=== PATIENT | female | born 1985 | race Caucasian/White ===

== ENCOUNTER 2021-08-02 17:38 | Outpatient (REF) | payer MEDICAID, SELFPAY ==
[2021-08-02 16:41] LABS: *AMPHETAMINES SCREEN URINE Negative (Negative); *BARBITURATES SCREEN URINE Negative (Negative); *BENZODIAZEPINES SCREEN URINE Negative (Negative); Cannabinoids THC Negative (Negative); Cocaine Screen,Urine Negative (Negative); METHADONE URINE SCREEN Negative (Negative); OPIATES URINE SCREEN Negative (Negative)
[2021-08-02 16:44] LABS: Tricyclic Antidepressants Negative (Negative)
[2021-08-08 12:52] LABS: Buprenorphine Negative ng/mL (Cutoff: 5.0); Norbuprenorphine Negative ng/mL (Cutoff: 2.5)
== END 2021-08-02 17:39 | disposition home or self-care (01) ==
LOC: LBN 17:38
PROVIDERS: PCP Family Medicine; Visit Provider Advanced Practice Midwife
DX: O09.512 Supervision of elderly primigravida, second trimester (principal); Z3A.22 22 weeks gestation of pregnancy
CPT/HCPCS: 80307

== ENCOUNTER 2021-09-13 04:00 | Outpatient (CLI) | payer MEDICAID, SELFPAY ==
[2021-09-13 16:11] LABS: HCT 31.7 % (36.0-46.0); HGB 10.4 g/dL (11.2-15.7); MCH 29.8 pg (27.0-33.0); MCHC 32.8 % (32.0-36.0); MCV 91 fL (80-95); MPV 9.6 fL (8.0-11.0); Platelet Count 164 10^3/uL (130-400); RBC 3.49 10^6/uL (3.93-5.22); RDW 13.4 % (11.7-14.6); RDW-SD 43.8 fL; WBC 7.64 10^3/uL (4.4-10.8)
[2021-09-13 16:33] LABS: Glucose,1 Hr (Glucola) 113 mg/dL (80-140)
== END 2021-09-13 04:01 | disposition home or self-care (01) ==
LOC: LBO 04:00
PROVIDERS: PCP Family Medicine; Visit Provider Advanced Practice Midwife
DX: Z34.93 Encounter for supervision of normal pregnancy, unspecified, third trimester (principal); Z3A.28 28 weeks gestation of pregnancy
CPT/HCPCS: 36415; 82950; 85027

== ENCOUNTER 2021-11-08 15:22 | Outpatient (REF) | payer MEDICAID, SELFPAY ==
[2021-11-08 17:11] LABS: *AMPHETAMINES SCREEN URINE Negative (Negative); *BARBITURATES SCREEN URINE Negative (Negative); *BENZODIAZEPINES SCREEN URINE Negative (Negative); Cannabinoids THC Negative (Negative); Cocaine Screen,Urine Negative (Negative); METHADONE URINE SCREEN Negative (Negative); OPIATES URINE SCREEN Negative (Negative); Tricyclic Antidepressants Negative (Negative)
[2021-11-14 09:07] LABS: Buprenorphine Negative ng/mL (Cutoff: 5.0)
== END 2021-11-08 15:23 | disposition home or self-care (01) ==
LOC: LBN 15:22
PROVIDERS: PCP Family Medicine; Visit Provider Advanced Practice Midwife
DX: Z34.93 Encounter for supervision of normal pregnancy, unspecified, third trimester (principal); Z36.85 Encounter for antenatal screening for Streptococcus B; Z3A.36 36 weeks gestation of pregnancy
CPT/HCPCS: 80307; 87081

== ENCOUNTER 2021-11-14 13:23 | Outpatient (CLI) | payer MEDICAID, SELFPAY ==
[2021-11-14 14:30] VITALS: BP 106/65; PULSE 77; TEMP 36.7
[2021-11-14 14:53] VITALS: BP 103/65; PULSE 77
--- NOTE | 2021-11-14 15:12 | W.OBNST ---
Date of service: 11/14/21 Time of Service: 15:12 NST Evaluation Reason for NST Reasons for Nonstress Test: DECREASED MOVEMENT Gestational Age Gestational Age in Weeks and Days: 37 Weeks and 0Days Test and Monitor Explained Test/Monitor Explained: Test Explained, Monitor Explained and Patient Verbalized Understanding Vital Signs Blood Pressure: 106/65 Pulse: 77 Temperature: 98.1 F NST Information Date on Monitor: 11/14/21 Time on Monitor: 14:31 Date off Monitor: 11/14/21 Time off Monitor: 14:53 Total Time on Monitor: 22 NST Interventions: PO Hydration NST Evaluation Patient States Movement: Present FHR Baseline: 150 Variability: Moderate 6-25 bpm Accelerations: 15x15 Decelerations: None NST Results: Reactive Note NST Note NST Reviewed and Verified by: Naomi Jeronimo
[2021-11-14 15:13] VITALS: BP 106/65; PULSE 77; TEMP 36.7
== END 2021-11-14 14:58 | disposition home or self-care (01) ==
LOC: BCD 13:25 → OBS 14:29
PROVIDERS: PCP Family Medicine; Visit Provider Advanced Practice Midwife
DX: O36.8130 Decreased fetal movements, third trimester, not applicable or unspecified (principal); Z3A.37 37 weeks gestation of pregnancy
CPT/HCPCS: 59025

== ENCOUNTER 2021-11-22 06:17 | Outpatient (CLI) | payer MEDICAID, SELFPAY ==
[2021-11-22 12:43] VITALS: BP 109/66; PULSE 73; TEMP 36.7
[2021-11-22 13:00] VITALS: BP 109/66; PULSE 73
--- NOTE | 2021-11-22 13:28 | W.OBNST ---
Date of service: 11/22/21 Time of Service: 13:28 NST Evaluation Reason for NST Reasons for Nonstress Test: OTHER, SEE COMMENT Reason for NST Other: two vessel cord Gestational Age Gestational Age in Weeks and Days: 38 Weeks and 1Days Test and Monitor Explained Test/Monitor Explained: Test Explained and Monitor Explained Vital Signs Blood Pressure: 109/66 Pulse: 73 Temperature: 98.1 F NST Information Date on Monitor: 11/22/21 Time on Monitor: 12:45 Date off Monitor: 11/22/21 Time off Monitor: 13:16 Total Time on Monitor: 31 NST Interventions: PO Hydration NST Evaluation Patient States Movement: Present FHR Baseline: 125 Variability: Moderate 6-25 bpm Accelerations: 15x15 Decelerations: None NST Results: Reactive Note NST Note Note: Reactive NST. History of 2 vessel cord and small fundal height. NST Reviewed and Verified by: Anny Rodriguez
[2021-11-22 13:29] VITALS: BP 109/66; PULSE 73; TEMP 36.7
== END 2021-11-22 13:18 | disposition home or self-care (01) ==
LOC: BCD 06:20 → OBS 12:42
PROVIDERS: PCP Family Medicine; Visit Provider Advanced Practice Midwife
DX: O36.5933 Maternal care for other known or suspected poor fetal growth, third trimester, fetus 3 (principal); O36.8930 Maternal care for other specified fetal problems, third trimester, not applicable or unspecified; Z3A.38 38 weeks gestation of pregnancy
CPT/HCPCS: 59025

== ENCOUNTER 2021-11-29 07:05 | Outpatient (CLI) | payer MEDICAID, SELFPAY ==
[2021-11-29 12:52] VITALS: BP 105/57; PULSE 68; TEMP 36.7
[2021-11-29 13:04] VITALS: BP 105/57; PULSE 68
--- NOTE | 2021-11-29 14:48 | W.OBNST ---
Date of service: 11/29/21 Time of Service: 14:49 NST Evaluation Reason for NST Reasons for Nonstress Test: OTHER, SEE COMMENT Reason for NST Other: single artery umbilical cord Gestational Age Gestational Age in Weeks and Days: 39 Weeks and 1Days Test and Monitor Explained Test/Monitor Explained: Test Explained and Monitor Explained Vital Signs Blood Pressure: 105/57 Pulse: 68 Temperature: 98.1 F Urine Results Urine Protein: Negative Urine Ketones: Negative Urine Glucose: Negative Urine Blood: Negative NST Information Date on Monitor: 11/29/21 Time on Monitor: 12:56 Date off Monitor: 11/29/21 Time off Monitor: 13:20 Total Time on Monitor: 24 NST Interventions: PO Hydration NST Evaluation Patient States Movement: Present FHR Baseline: 135 Variability: Moderate 6-25 bpm Accelerations: 15x15 Decelerations: None NST Results: Reactive Note Biophysical Profile Results of Biophysical Profile: 10/10 and ABDOUL Results of ABDOUL: 22.9 NST Note NST Reviewed and Verified by: Naomi Jeronimo
[2021-11-29 14:49] VITALS: BP 105/57; PULSE 68; TEMP 36.7
== END 2021-11-29 13:40 | disposition home or self-care (01) ==
LOC: BCD 07:09 → OBS 11:43
PROVIDERS: PCP Family Medicine; Visit Provider Advanced Practice Midwife
DX: O36.8930 Maternal care for other specified fetal problems, third trimester, not applicable or unspecified (principal); Z3A.39 39 weeks gestation of pregnancy
CPT/HCPCS: 59025

== ENCOUNTER 2021-12-06 07:32 | Outpatient (CLI) | payer MEDICAID, SELFPAY ==
[2021-12-06 13:27] VITALS: BP 107/68; PULSE 78
[2021-12-06 13:39] VITALS: BP 107/68; PULSE 78; TEMP 36.7
--- NOTE | 2021-12-06 14:08 | W.OBNST ---
Date of service: 12/06/21 Time of Service: 14:08 NST Evaluation Reason for NST Reasons for Nonstress Test: OTHER, SEE COMMENT Reason for NST Other: 2 vessel cord. Gestational Age Gestational Age in Weeks and Days: 40 Weeks and 1Days Test and Monitor Explained Test/Monitor Explained: Test Explained, Monitor Explained and Patient Verbalized Understanding Vital Signs Blood Pressure: 107/68 Pulse: 78 Temperature: 98.1 F Urine Results Urine Protein: Negative Urine Ketones: Negative Urine Glucose: Negative Urine Blood: Negative NST Information Date on Monitor: 12/06/21 Time on Monitor: 13:15 Date off Monitor: 12/06/21 Time off Monitor: 14:03 Total Time on Monitor: 48 NST Interventions: PO Hydration and Reposition Patient Contraction Frequency: Irregular mild contractions NST Evaluation Patient States Movement: Present FHR Baseline: 130 Variability: Moderate 6-25 bpm Accelerations: 15x15 Decelerations: None NST Results: Reactive Note NST Note Note: NST is reactive and reassuring. Will return 12/12 for NST and ABDOUL for 41 week gestation. Declines IOL. IDA NST Reviewed and Verified by: Anny Kapoor
[2021-12-06 14:09] VITALS: BP 107/68; PULSE 78; TEMP 36.7
== END 2021-12-06 14:07 | disposition home or self-care (01) ==
LOC: BCD 07:36 → OBS 13:20
PROVIDERS: PCP Family Medicine; Visit Provider Advanced Practice Midwife
DX: O36.8930 Maternal care for other specified fetal problems, third trimester, not applicable or unspecified (principal); Z3A.40 40 weeks gestation of pregnancy
CPT/HCPCS: 59025

== ENCOUNTER 2021-12-12 08:59 | Inpatient (IN) | payer MEDICAID, SELFPAY ==
[2021-12-12] VITALS (20 sets, daily range): BP systolic 101–122; BP diastolic 54–67; PULSE 69–96; RESP 16–20; TEMP 36.6–37.5; O2SAT 97–99
--- NOTE | 2021-12-12 09:03 | W.PM.OBHPL1 ---
Date of service: 12/12/21 Time of Service: 08:45 Assessment and Plan Assessment and plan (1) Normal labor: Status: Acute Assessment and plan: 1. Admit and do admission labs, CBC, type and screen, COVID screen 2. Support labor and expect NVD. IDA (2) Group B Streptococcus carrier, +RV culture, currently : Status: Acute Assessment and plan: 1. PCN prophylaxis will be started. IDA OB-HPI Labor/Delivery History of Present Illness Reason for Visit: Active labor at term Chief Complaint: Uterine Contractions; Suspected Rupture of Membranes , Associated Signs and Symptoms of Suspected ROM: reports yellow fluid leaking in moderate amounts this morning starting at 0630. Denies bloody discharge. . MAURICE Calculator Estimated Delivery Date Method Current WG Current Estimate 12/05/21 LMP (Certain) 41w 0d History of Present Expected Delivery Route/Plan - CNM FOB/ - Damian Pablo (first child) BG Bolanoslori Cooper Plans to take placenta home team might include Cherise (pt's aunt) GBS POSITIVE - Plan for PCN prophylaxis Specific Issues/Plan 1. AMA- Normal Panorama, SMA testing, CF neg 1a. [place] [facility] [place] 2 [place]- consult planned with [place] Coulter [place] [facility] [place] 28 weeks, [place] [facility] [place] has follow up [place] [facility] [place] as well & Recommend weekly NST's at 36 weeks 1c. [place] [facility] [place]: EFW in 36th percentile, ABDOUL 22.6, SUA again seen. 2. Hives in : developed early after the morning sickness started, zyrtec helps. 3rd trimester: resolved. 3. marijuana use - stopped after the first trimester. 4. Jean Claude and Shawnee Salgado are both vaccinated for covid. 5. Increased risk of preeclampsia - discussed ASA daily recommendation, Jean Claude is taking it but ran out and did not restart 6. anemia - taking liver capsules. 1 capsule per day. 7. GBS+ @ 36 wks: discussed plan for PCN prophylaxis during labor Assessment: History Reviewed & Current Informed Consent Informed Consent: Risk,Benefits,Alternatives Discussed (expectant management in labor and ROM plus reviewed. IDA) Review of Systems All systems reviewed & are unremarkable except as noted in HPI and below (leaking fluid prior to arrival) PFSH All Active Problems (Updated 12/12/21 @ 09:24 by Anny Kapoor CNM) Group B Streptococcus carrier, +RV culture, currently (Acute) Normal labor (Acute) Elderly primigravida (Acute) Single artery and vein of umbilical cord (Acute) [place] 32 weeks [place] [facility] [place] NST's at 36 weeks weekly Lichen simplex chronicus (Acute) Marijuana use (Acute) Eczema (Acute) (Acute) Medical History Family History Maternal Grandfather Heart disease Cancer Maternal Uncle Cancer blood Cancer Mother Cancer melanoma Paternal Grandfather Diabetes Sister Asthma Social History Smoking risk assessment performed?: No History History 5 Para 0 Hx # Term Pregnancies 0 Multiple births 0 Hx # Pregnancies 0 Ectopic pregnancies 0 AB induced 2 Hx Number of Living Children 0 AB spontaneous 2 Meds Allergies and Home Medications Allergies Allergy/AdvReac Type Severity Reaction Status Date / Time No Known Allergies Allergy Verified 12/12/21 09:10 Home Medications Medication Instructions Recorded Confirmed Type cetirizine 10 mg capsule (Zyrtec) 10 mg PO DAILY PRN allergy 07/03/21 12/12/21 Rx symptoms #1 cap vit 168-iron 27 mg-folic 1 cap PO DAILY #1 cap 07/03/21 12/12/21 Rx acid 800 mcg-omega3 235 mg capsule (One-A-Day -1) aspirin 81 mg chewable tablet 81 mg PO DAILY 08/30/21 12/12/21 History ferrous sulfate 325 mg (65 mg 325 mg PO DAILY 09/27/21 12/12/21 History iron) tablet mometasone 0.1 % topical cream 1 applic topical DAILY PRN 09/27/21 12/12/21 History Exam Physical Exam Vital signs: Pulse BP 69 121/67 12/12/21 08:34 12/12/21 08:34 Vital Signs Reviewed: Yes Constitutional Constitutional: no acute distress and average body habitus Detailed Labor and Delivery Exam Dilation: 5 Effacement (%): 90 station: -1 Cervix position: posterior Consistency: soft Brown Score: Cervical Points Exam 0 1 2 3 Dilation Closed 1-2cm 3-4 cm 5-6cm Effacement 0-30% 40-50% 60-70% 80% Consistency Firm Medium Soft Station -3 -2 -1,0 +1,+2 Position Posterior Mid Anterior BROWN Score(Cervical Ripeness Score): 10 Fetus A Heart Rate Baseline: 140 Monitor Accelerations: 10 X 10 Monitor Decelerations: Early Variability: Minimal (1-5 BPM) Est. Weight: 8 lb 6 oz Date of Membrane Rupture: 12/12/21 Time of Membrane Rupture: 06:20 HEENT Exam HEENT Exam: Normal Neck Exam Neck Exam: Normal (visual exam) Chest/Brest/Axilla Exam Chest Exam: Not Done Breast Exam Breast Exam: Not Done Respiratory Exam Respiratory Exam: Normal Cardiovascular Exam Cardiovascular Exam: Normal Abdominal Exam Abdominal Exam: Normal (gravid uterus, size equals dates) Rectal Exam Rectal Exam: Not Done Exam Exam: Normal (no fluid loss noted with exam.) Extremities Exam Extremities Exam: Normal Back/Spine/Pelvis Exam Back Exam: Normal Pelvis Adequate: Yes Skin Exam Skin Exam: Normal Neurological Exam Neurological Exam: Normal Psychiatric Exam Psychiatric Exam: Normal Results Results Group Beta Strep: Positive Blood Type: A+ Rubella Status: Immune Varicella Immunity: Not Tested Lab Results: Panorama test LR male, Hep B-, Hep C-, Syphillis neg, GC CT neg, 1 hour glucose 113 Risk Assessment Risk for Shoulder Dystocia Historical/Initial OB: NEGATIVE FOR: Pelvic Abnormality, Pre- BMI>30, Previous Shoulder Dystocia or Previous Macrosomia 40 Weeks: POSTIVE FOR: Post Dates; NEGATIVE FOR: EFW> 4500 gms or Maternal Weight Gain >40lb Delivery Plan @ 36wks: NVD Delivery Plan @ 40 wks: expect NVD, 41 week gestation but AGA fetus by tennille Risk for Pre-Eclampsia Date Initiated/Initials: 08/02/21 Yes, if one or more: NEGATIVE FOR: Hx Pre-E/Gest HTN, Chronic HTN, Multiple Gestation, Pre-gestational DM, Renal Disease, Systemic Lupus or APA Syndrome Yes, if 2 or more: POSITIVE FOR: Nulliparity and Age>= 35 yrs; NEGATIVE FOR: >10yr btwn pregnancies, BMI>30, ethinicty, Mother/Sister w/ Pre-E or Previous IUGR Risk for Post- Hemorrhage Initial: NEGATIVE FOR: Multiple Gestation, Previous PPH, Known Clotting Deficiency, Grand Multiparity or Anticoagulation At Risk?: No Counseled re: Active Management: Yes Date/Initials: 12/12/21 KH Risks Reviewed Risks Reviewed Upon Admission: Yes
[2021-12-12 09:20] LABS: Source Nasal/Nares
[2021-12-12 09:22] LABS: HCT 33.9 % (36.0-46.0); HGB 11.8 g/dL (11.2-15.7); MCH 30.3 pg (27.0-33.0); MCHC 34.8 % (32.0-36.0); MCV 87 fL (80-95); MPV 10.7 fL (8.0-11.0); Platelet Count 141 10^3/uL (130-400); RBC 3.89 10^6/uL (3.93-5.22); RDW 13.2 % (11.7-14.6); RDW-SD 41.2 fL; WBC 9.62 10^3/uL (4.4-10.8)
[2021-12-12] MEDS: Penicillin G POT. 5,000,000 UNITS in Normal Saline 100 ML 200 UNITS IVPB (09:45)
[2021-12-12 09:51] LABS: ROM Plus Positive
[2021-12-12 09:52] LABS: COVID-19 PCR Negative (Negative)
[2021-12-12] MEDS: Lactated Ringers 1,000 ML 1000 ML IV (10:28)
[2021-12-12] MEDS: Normal Saline Flush 10 ML SYR IVP ×3 (13:38→21:34)
--- NOTE | 2021-12-12 13:50 | W.PM.OBNL1 ---
Date of service: 12/12/21 Time of Service: 13:40 Informed Consent Informed Consent: Risk,Benefits,Alternatives Discussed (expectant management in labor and ROM plus reviewed. IDA) Pelvic Exam Comments: deferred until patient is up to BR and able to rest in bed for exam. Contractions Monitor Mode: Palpation Contraction Frequency(min): 3-4 Contraction Duration(sec): 60-90 Intensity: Moderate/Strong Fetus A Monitor: Doppler Heart Rate Baseline: 145 Assessment and Plan Assessment and plan (1) Group B Streptococcus carrier, +RV culture, currently : Status: Acute Assessment and plan: 1. Second dose of PCN being administered. IDA (2) Normal labor: Status: Acute Assessment and plan: 1. Will continue present management, patient has excellent support. 2. Expect NVD. Objective Abnormal lab results 12/12/21 Range/Units 09:15 RBC 3.89 L (3.93-5.22) 10^6/uL Hct 33.9 L (36.0-46.0) % Temp Pulse Resp BP Pulse Ox 98.2 F 77 20 114/67 99 12/12/21 10:56 12/12/21 10:56 12/12/21 10:56 12/12/21 10:56 12/12/21 10:00 Laboratory Results WBC 9.62 10^3/uL (4.4-10.8) 12/12/21 09:15 RBC 3.89 10^6/uL (3.93-5.22) L 12/12/21 09:15 Hgb 11.8 g/dL (11.2-15.7) 12/12/21 09:15 Hct 33.9 % (36.0-46.0) L 12/12/21 09:15 MCV 87 fL (80-95) 12/12/21 09:15 MCH 30.3 pg (27.0-33.0) 12/12/21 09:15 MCHC 34.8 % (32.0-36.0) 12/12/21 09:15 RDW 13.2 % (11.7-14.6) 12/12/21 09:15 Plt Count 141 10^3/uL (130-400) 12/12/21 09:15 MPV 10.7 fL (8.0-11.0) 12/12/21 09:15 Membranes Rupture Positive 12/12/21 08:52 COVID-19 Source Nasal/Nares 12/12/21 08:52 SARS-CoV-2 (PCR) Negative (Negative) 12/12/21 08:52 Patient ABO/Rh A Positive 12/12/21 09:15 Antibody Screen NEGATIVE 12/12/21 09:15 Subjective Interval history since last seen: Feels contractions are regular and strong. She did enjoy being in the tub and is now out on birthing ball. Continues to leak yellow mec stained amniotic fluid. Should be receiving second dose of PCN in next hour. KH Results Hemoglobin/Hematocrit: Hgb 11.8 g/dL (11.2-15.7) 12/12/21 09:15 Hct 33.9 % (36.0-46.0) L 12/12/21 09:15 Abnormal Lab Findings: Abnormal Labs 12/12/21 09:15 RBC 3.89 L Hct 33.9 L
--- NOTE | 2021-12-12 15:56 | W.PM.OBNL1 ---
Date of service: 12/12/21 Time of Service: 14:58 Informed Consent Informed Consent: Risk,Benefits,Alternatives Discussed (expectant management in labor and ROM plus reviewed. IDA) Pelvic Exam Dilation: 6 Effacement (%): 90 station: -1 Cervix Position: posterior Consistency: soft Contractions Monitor Mode: Palpation Contraction Frequency(min): 2-4 Contraction Duration(sec): 50-80 Intensity: Moderate/Strong Fetus A Monitor: Doppler Heart Rate Baseline: 140 Assessment and Plan Assessment and plan (1) Abnormal labor: Status: Acute Assessment and plan: 1. Lack of progress in dilation over past 6 hours. Patient is having regular contractions that may benefit from increase in intensity. 2. Discussed IUPC and pitocin as options to help encourage and monitor labor 3. Patient prefers to work with position changes and may do nipple stimulation while in the shower for a short period of time prior to doing medical interventions. 4. Will continue to assess and repeat VE in next 2 hours if patient agrees. 5. Continue antibiotics for GBS. Objective Abnormal lab results 12/12/21 Range/Units 09:15 RBC 3.89 L (3.93-5.22) 10^6/uL Hct 33.9 L (36.0-46.0) % Temp Pulse Resp BP Pulse Ox 97.9 F 82 20 104/63 99 12/12/21 14:01 12/12/21 14:05 12/12/21 10:56 12/12/21 14:05 12/12/21 10:00 Laboratory Results WBC 9.62 10^3/uL (4.4-10.8) 12/12/21 09:15 RBC 3.89 10^6/uL (3.93-5.22) L 12/12/21 09:15 Hgb 11.8 g/dL (11.2-15.7) 12/12/21 09:15 Hct 33.9 % (36.0-46.0) L 12/12/21 09:15 MCV 87 fL (80-95) 12/12/21 09:15 MCH 30.3 pg (27.0-33.0) 12/12/21 09:15 MCHC 34.8 % (32.0-36.0) 12/12/21 09:15 RDW 13.2 % (11.7-14.6) 12/12/21 09:15 Plt Count 141 10^3/uL (130-400) 12/12/21 09:15 MPV 10.7 fL (8.0-11.0) 12/12/21 09:15 Membranes Rupture Positive 12/12/21 08:52 COVID-19 Source Nasal/Nares 12/12/21 08:52 SARS-CoV-2 (PCR) Negative (Negative) 12/12/21 08:52 Patient ABO/Rh A Positive 12/12/21 09:15 Antibody Screen NEGATIVE 12/12/21 09:15 Results Hemoglobin/Hematocrit: Hgb 11.8 g/dL (11.2-15.7) 12/12/21 09:15 Hct 33.9 % (36.0-46.0) L 12/12/21 09:15 Abnormal Lab Findings: Abnormal Labs 12/12/21 09:15 RBC 3.89 L Hct 33.9 L
--- NOTE | 2021-12-12 19:35 | W.PM.OBNL1 ---
Date of service: 12/12/21 Time of Service: 18:45 Informed Consent Informed Consent: Risk,Benefits,Alternatives Discussed (expectant management in labor and ROM plus reviewed. IDA) Fetus A Assessment Note: Nursing has been doing doppler FHR's which have been reassuring. Contractions are 3-5 minutes apart. Assessment and Plan Assessment and plan (1) Abnormal labor: Status: Acute Assessment and plan: 1. Will support patient having period of rest and then reassess for progress and plan for moving toward delivery. Objective Abnormal lab results 12/12/21 Range/Units 09:15 RBC 3.89 L (3.93-5.22) 10^6/uL Hct 33.9 L (36.0-46.0) % Temp Pulse Resp BP Pulse Ox 97.9 F 93 H 20 112/56 L 99 12/12/21 18:03 12/12/21 18:03 12/12/21 10:56 12/12/21 18:03 12/12/21 10:00 Laboratory Results WBC 9.62 10^3/uL (4.4-10.8) 12/12/21 09:15 RBC 3.89 10^6/uL (3.93-5.22) L 12/12/21 09:15 Hgb 11.8 g/dL (11.2-15.7) 12/12/21 09:15 Hct 33.9 % (36.0-46.0) L 12/12/21 09:15 MCV 87 fL (80-95) 12/12/21 09:15 MCH 30.3 pg (27.0-33.0) 12/12/21 09:15 MCHC 34.8 % (32.0-36.0) 12/12/21 09:15 RDW 13.2 % (11.7-14.6) 12/12/21 09:15 Plt Count 141 10^3/uL (130-400) 12/12/21 09:15 MPV 10.7 fL (8.0-11.0) 12/12/21 09:15 Membranes Rupture Positive 12/12/21 08:52 COVID-19 Source Nasal/Nares 12/12/21 08:52 SARS-CoV-2 (PCR) Negative (Negative) 12/12/21 08:52 Patient ABO/Rh A Positive 12/12/21 09:15 Antibody Screen NEGATIVE 12/12/21 09:15 Subjective Interval history since last seen: becoming fatigued, is not ready to move forward with pitocin at this time. Will try to rest for 1-2 hours and then reassess contractions and FHR as well as VE. At that time will review that normal progress is 1 cm every 2 hours and that she has done 1 cm at this time total. If no ROM we might be able to allow and overnight sleep and reassess in am for intervention but due to GBS + and ROM it would be in her and her baby's best interest to move toward delivery at that time. Verbalizes understanding. Family is supportive. KH Results Hemoglobin/Hematocrit: Hgb 11.8 g/dL (11.2-15.7) 12/12/21 09:15 Hct 33.9 % (36.0-46.0) L 12/12/21 09:15 Abnormal Lab Findings: Abnormal Labs 12/12/21 09:15 RBC 3.89 L Hct 33.9 L
--- NOTE | 2021-12-12 21:00 | W.PM.OBNL1 ---
Date of service: 12/12/21 Time of Service: 21:00 Informed Consent Informed Consent: Risk,Benefits,Alternatives Discussed (expectant management in labor and ROM plus reviewed. IDA) Pelvic Exam Dilation: 8 Effacement (%): 100 station: -1 Cervix Position: mid Contractions Monitor Mode: Palpation Contraction Frequency(min): 3 Contraction Duration(sec): 60-120 Intensity: Moderate/Strong Fetus A Monitor: Doppler Heart Rate Baseline: 140 Assessment and Plan Assessment and plan (1) Abnormal labor: Status: Acute Assessment and plan: 1. Will continue to encourage position changes and reassess for further progress in 2 hours Objective Abnormal lab results 12/12/21 Range/Units 09:15 RBC 3.89 L (3.93-5.22) 10^6/uL Hct 33.9 L (36.0-46.0) % Temp Pulse Resp BP Pulse Ox 98.4 F 82 20 122/62 99 12/12/21 20:38 12/12/21 20:38 12/12/21 10:56 12/12/21 20:38 12/12/21 10:00 Laboratory Results WBC 9.62 10^3/uL (4.4-10.8) 12/12/21 09:15 RBC 3.89 10^6/uL (3.93-5.22) L 12/12/21 09:15 Hgb 11.8 g/dL (11.2-15.7) 12/12/21 09:15 Hct 33.9 % (36.0-46.0) L 12/12/21 09:15 MCV 87 fL (80-95) 12/12/21 09:15 MCH 30.3 pg (27.0-33.0) 12/12/21 09:15 MCHC 34.8 % (32.0-36.0) 12/12/21 09:15 RDW 13.2 % (11.7-14.6) 12/12/21 09:15 Plt Count 141 10^3/uL (130-400) 12/12/21 09:15 MPV 10.7 fL (8.0-11.0) 12/12/21 09:15 Membranes Rupture Positive 12/12/21 08:52 COVID-19 Source Nasal/Nares 12/12/21 08:52 SARS-CoV-2 (PCR) Negative (Negative) 12/12/21 08:52 Patient ABO/Rh A Positive 12/12/21 09:15 Antibody Screen NEGATIVE 12/12/21 09:15 Vital Signs Reviewed: Yes Subjective Interval history since last seen: Agreed to VE, 8cm 100 -1 cervix is stretchy. Baby's heart rate is WNL by doppler and she is having strong contractions every 3 minutes. Patient would like to continue to work towards vaginal delivery. KH Results Hemoglobin/Hematocrit: Hgb 11.8 g/dL (11.2-15.7) 12/12/21 09:15 Hct 33.9 % (36.0-46.0) L 12/12/21 09:15 Abnormal Lab Findings: Abnormal Labs 12/12/21 09:15 RBC 3.89 L Hct 33.9 L
[2021-12-12] MEDS: Calcium Carbonate *TUMS* 500 MG CHEW 1000 MG PO (21:33)
--- NOTE | 2021-12-12 23:56 | W.PM.OBNL1 ---
Date of service: 12/12/21 Time of Service: 23:56 Informed Consent Informed Consent: Augmentation of Labor (pitocin use reviewed, IUPC use reviewed) and Risk,Benefits,Alternatives Discussed (expectant management in labor and ROM plus reviewed. IDA) Pelvic Exam Dilation: 8 Effacement (%): 100 station: -1 Cervix Position: mid Contractions Monitor Mode: Internal Contraction Frequency(min): 3-4 Contraction Duration(sec): 60-90 IUPC resting tone (mmHg): 0 IUPC peak pressure (mmHg): 550 IUPC [place] units: 140 Fetus A Monitor: External (US) Heart Rate Baseline: 135 Variability: Other (difficult to maintain tracing due to maternal position changes) Decelerations: None Assessment and Plan Assessment and plan (1) Abnormal labor: Status: Acute Assessment and plan: 1. discussed that at this time my strong recommendation is to try pitocin to augment labor or consider delivery. I reviewed that I cannot guarantee vaginal delivery even if she achieves contractions with adequate strength but the IUPC has demonstrated that contractions are indeed not adequate. She agrees to pitocin augmentation and verbalizes understanding that vaginal cannot be guaranteed. 2. Risks, benefits and alternatives to pitocin including are reviewed. 3. IUPC is in place and we will begin pitocin augmentation with hope for NVD. IDA (2) Group B Streptococcus carrier, +RV culture, currently : Status: Acute Assessment and plan: 1. Continue with PCN at this time. Highest temp 99.4. Objective Abnormal lab results 12/12/21 Range/Units 09:15 RBC 3.89 L (3.93-5.22) 10^6/uL Hct 33.9 L (36.0-46.0) % Temp Pulse Resp BP Pulse Ox 99.5 F 86 20 101/54 L 98 12/12/21 23:25 12/12/21 23:54 12/12/21 10:56 12/12/21 22:39 12/12/21 23:54 Laboratory Results WBC 9.62 10^3/uL (4.4-10.8) 12/12/21 09:15 RBC 3.89 10^6/uL (3.93-5.22) L 12/12/21 09:15 Hgb 11.8 g/dL (11.2-15.7) 12/12/21 09:15 Hct 33.9 % (36.0-46.0) L 12/12/21 09:15 MCV 87 fL (80-95) 12/12/21 09:15 MCH 30.3 pg (27.0-33.0) 12/12/21 09:15 MCHC 34.8 % (32.0-36.0) 12/12/21 09:15 RDW 13.2 % (11.7-14.6) 12/12/21 09:15 Plt Count 141 10^3/uL (130-400) 12/12/21 09:15 MPV 10.7 fL (8.0-11.0) 12/12/21 09:15 Membranes Rupture Positive 12/12/21 08:52 COVID-19 Source Nasal/Nares 12/12/21 08:52 SARS-CoV-2 (PCR) Negative (Negative) 12/12/21 08:52 Patient ABO/Rh A Positive 12/12/21 09:15 Antibody Screen NEGATIVE 12/12/21 09:15 Subjective Interval history since last seen: Jean Claude has had emesis and mild temp elevation of 99.4. We discussed that we should do more medical intervention with pitocin if indicated by contractions on IUPC or consider section as her risk of infection can increase for herself and her baby despite receiving PCN. She agrees that she prefer IUPC and pitocin over if possible. IUPC placed and EFM on. KH Results Hemoglobin/Hematocrit: Hgb 11.8 g/dL (11.2-15.7) 12/12/21 09:15 Hct 33.9 % (36.0-46.0) L 12/12/21 09:15 Abnormal Lab Findings: Abnormal Labs 12/12/21 09:15 RBC 3.89 L Hct 33.9 L
[2021-12-13] VITALS (87 sets, daily range): BP systolic 96–129; BP diastolic 52–75; PULSE 0–128; RESP 14–20; TEMP 36.5–37.4; O2SAT 95–100; BMI 25.7
--- NOTE | 2021-12-13 00:53 | W.ANESPRE ---
General Info Date of Service Date Performed: 12/13/21 Height: 5 ft 4 in Weight: 68.039 kg Body Mass Index (BMI): 25.7 Meds Allergies and Home Medications Allergies Allergy/AdvReac Type Severity Reaction Status Date / Time No Known Allergies Allergy Verified 12/12/21 10:26 Home Medication Medication Instructions Recorded cetirizine 10 mg capsule (Zyrtec) 10 mg PO DAILY PRN allergy 07/03/21 symptoms #1 cap vit 168-iron 27 mg-folic 1 cap PO DAILY #1 cap 07/03/21 acid 800 mcg-omega3 235 mg capsule (One-A-Day -1) aspirin 81 mg chewable tablet 81 mg PO DAILY 08/30/21 ferrous sulfate 325 mg (65 mg 325 mg PO DAILY 09/27/21 iron) tablet mometasone 0.1 % topical cream 1 applic topical DAILY PRN 09/27/21 Current Visit Medications: Current Medications Generic Name Dose Route Start Last Admin Trade Name Freq PRN Reason Stop Dose Admin Sodium Chloride 500 mls @ 0 mls/hr 12/12/21 08:59 Saline 500ml Bag IV PRN PRN As Directed Penicillin G Potassium 2,500, 50 mls @ 100 mls/hr 12/12/21 13:30 12/12/21 21:33 000 units/ Sodium Chloride IVPB 100 mls/hr Q4H RICARDA Administration Ringer's Solution 1,000 mls @ 125 mls/hr 12/13/21 00:15 IV INFUSION RICARDA Oxytocin/Sodium Chloride 30 unit in 500 mls @ 2 mls/hr 12/13/21 00:15 Pitocin/Normal Saline IV INFUSION [facility] Protocol 2 MILLIUNITS/MIN IV Miscellaneous Supplies 1 each 12/12/21 08:59 Iv Access IV DIRECTED PRN maternal indication Sodium Chloride 0 ml 12/12/21 08:59 12/12/21 21:34 Normal Saline Flush 10 Ml Syr IVP 10 ml PRN PRN Administration PFSH Active Problems Active Problems: Problem Status Onset Code Abnormal labor O62.9 Group B Streptococcus carrier, +RV culture, currently O99.820 Normal labor O80, Z37.9 Elderly primigravida O09.519 Single artery and vein of umbilical cord Q27.0 Lichen simplex chronicus L28.0 Marijuana use F12.90 Eczema L30.9 Z34.90 Medical History Medical History Tobacco Smoking/Tobacco Use Status: Never Alcohol Alcohol Intake: never Substance Use Substance use: Current Sobriety Substance use type: marijuana Prental History History 5 Para 0 Hx # Term Pregnancies 0 Multiple births 0 Hx # Pregnancies 0 Ectopic pregnancies 0 AB induced 2 Hx Number of Living Children 0 AB spontaneous 2 Vital Signs and Lab Results Vital Signs Most Recent Vital Signs in EMR: Most Recent Vital Signs Temp Pulse Resp BP Pulse Ox 36.8 C 90 20 101/61 98 12/13/21 00:47 12/13/21 00:50 12/13/21 00:47 12/13/21 00:47 12/13/21 00:50 Lab Results Result Diagrams: 12/12/21 09:15 Blood Type / Crossmatch: Patient ABO/Rh A Positive 12/12/21 Antibody Screen NEGATIVE 12/12/21 Complete Blood Count: White Blood Count 9.62 10^3/uL (4.4-10.8) 12/12/21 09:15 Red Blood Count 3.89 10^6/uL (3.93-5.22) L 12/12/21 09:15 Hemoglobin 11.8 g/dL (11.2-15.7) 12/12/21 09:15 Hematocrit 33.9 % (36.0-46.0) L 12/12/21 09:15 Platelet Count 141 10^3/uL (130-400) 12/12/21 09:15 Complete Metabolic Panel: No Data to Display Liver Function Panel: No Data to Display Coagulation Panel: No Data to Display Cardiac Panel: No Data to Display Arterial Blood Gas: No Data to Display Venous Blood Gas: No Data to Display Pancreas Panel: No Data to Display Thyroid Panel: No Data to Display Infectious Disease: Coronavirus (COVID-19)(PCR) Negative (Negative) 12/12/21 08:52 Coronavirus 2019 Source Nasal/Nares 12/12/21 08:52 Blood Cultures: No Data to Display Toxicology Panel: No Data to Display Panel: No Data to Display Anesthesia Assessment and Plan Anesthesia History Personal History: No History of Anesthesia Complications Family History: No Family History of Anesthesia Complications Exercise Tolerance Exercise Tolerance: Metabolic Equivalents>4 Cardiac & Pulmonary Exam Cardiac Exam: Normal S1/S2 Heart Sounds Pulmonary Exam: Clear Bilateral Breath Sounds Implantable Cardiac Device Does patient have a Pacemaker or an ICD?: No Airway Exam Known Difficult Airway: No Mallampati Class: 2 Mouth Opening: Normal (> 3cm) Thyromental Distance: Greater than 3 cm Neck Range of Motion: Full ROM Neck Circumference: Normal Teeth Condition: Normal Dentition ASA Classification ASA Score: ASA 2 Emergency Case?: No NPO Status NPO Status: NPO Clears >2 hours, Solids >8 hours Status Status: Confirmed Anesthesia Plan Resuscitation Status: Full Code Anesthesia Technique: Epidural Anesthesia Airway Planned: Natural Airway Monitors Used: Standard Monitors
[2021-12-13] MEDS: Lactated Ringers 1,000 ML 125 ML IV (01:00)
[2021-12-13] MEDS: fentaNYL 100 MCG/2 ML VIAL (01:27)
[2021-12-13] MEDS: Bupivacaine 0.25% Pres-Free 10 ML VIAL (01:27)
--- NOTE | 2021-12-13 01:44 | W.ANESNEU ---
Epidural/Spinal Catheter Date Performed: 12/13/21 Procedure Start: 01:04 Procedure Stop: 01:46 Requesting Provider: Anny Kapoor Procedure Location: Obstetrics Reason Performed: Labor Epidural Standard Monitors Applied: Blood Pressure, SpO2 and See EMR for corresponding vital signs Patient Position: Sitting Sedation Given (Indicate Dose Given): No Sedation given Patient Mental Status: Awake Sterility: Hand Hygiene, Surgical Cap, Surgical Mask, Sterile Gloves, Sterile Drape/Sheet and Chlorhexidine Procedure Location: L3-L4 Interspace Epidural Needle: Tuohy 17 Guage Needle Length: 3.5 Inch Needle Approach: Midline Epidural Procedure: Skin Prepped, Sterile Drape Placed, 1% Lidocaine to skin and subcutaneous tissue with 25G needle, Tuohy Needle placed, ANIA to Saline Used, Epidural Catheter Placed, Negative Heme, Negative CSF Flow and Tuohy Needle Removed Catheter Placed?: Catheter Placed Test Dose (Indicate Dose Given): 3ml 1.5% Lidocaine with 1:200K Epinephrine Given and Negative Test Dose Loss of Resistance Depth (cm): 6 Catheter depth at skin (cm): 12 Dressing: Tegaderm Applied, Mastisol Used and Dressing reinforced with Tape Epidural Provider Bolus (Indicate Dose Given): Total bolus dose given in 3-5 ml divided doses and Total Bupivacaine 0.25% Given (ml) Dose:: 6 ml Additives (Indicate Dose Given ): Fentanyl PF Dose:: 100mcg Infusion Medication: Medication Infusion Began Medication Infusion: Ropivacaine 0.1% with Fentanyl 2mcg/ml Maintenance Infusion Rate (ml/hour): 10 PCEA Bolus Dose (ml): 5 Post Procedure Pain score (0-10): 0 Block Level: N/A Paresthesia: None Ultrasound: Not Used Number of Attempts (See previous attempts in note section): 1 Procedure Tolerated: No Complications and Patient tolerated well Procedure Outcome: Successful Procedure Comment:: upper thigh numbness ilene only, good motor BLE Performed By: Miranda Mccauley
[2021-12-13] MEDS: Oxytocin/Normal Saline 30 UNIT/500 ML BAG 2 UNITS IV (01:55)
--- NOTE | 2021-12-13 01:57 | W.PM.OBNL1 ---
Date of service: 12/13/21 Time of Service: 01:57 Informed Consent Informed Consent: Augmentation of Labor (pitocin use reviewed, IUPC use reviewed) and Risk,Benefits,Alternatives Discussed (expectant management in labor and ROM plus reviewed. ) Pelvic Exam Dilation: 9 Effacement (%): 100 station: -1 Cervix Position: anterior Consistency: soft Contractions Monitor Mode: External Contraction Frequency(min): 3-4 Contraction Duration(sec): 60-90 Intensity: Moderate/Strong Fetus A Monitor: External (US) Heart Rate Baseline: 150 Variability: Moderate (6-25 BPM) Categories: Category II Accelerations: Absent Decelerations: Variable Recurrence: Intermittent Assessment Note: status post epirural. BP stable, will reposition to lateral as needed. Overall FHR reassuring. Assessment and Plan Assessment and plan (1) Abnormal labor: Status: Acute Assessment and plan: 1. Good relaxation with epidural 2. VS stable 3. cervical changes to 9.5 after epidural, will use pitocin to regulate contractions 4. Expect NVD. 5. Discussed possible need for urinary straight cath prior to delivery if unable to void or bladder is palpable. 6. Discussed with patient and family that prolonged labor may increase risk for PPH and what measures are used to mitigate that. Verbalize understanding and deny questions. 7 Immigration Case Manager had reviewed patient status and status with Dr. Reynoso again to review wait for pitocin until comfortable with epidural, we also discussed maternal VS and that if temp elevates over 100.4 we would add Gentamycin IV as well. Objective Abnormal lab results 12/12/21 Range/Units 09:15 RBC 3.89 L (3.93-5.22) 10^6/uL Hct 33.9 L (36.0-46.0) % Temp Pulse Resp BP Pulse Ox 98.3 F 94 H 20 105/58 L 98 12/13/21 00:47 12/13/21 01:54 12/13/21 00:47 12/13/21 01:46 12/13/21 01:53 Laboratory Results WBC 9.62 10^3/uL (4.4-10.8) 12/12/21 09:15 RBC 3.89 10^6/uL (3.93-5.22) L 12/12/21 09:15 Hgb 11.8 g/dL (11.2-15.7) 12/12/21 09:15 Hct 33.9 % (36.0-46.0) L 12/12/21 09:15 MCV 87 fL (80-95) 12/12/21 09:15 MCH 30.3 pg (27.0-33.0) 12/12/21 09:15 MCHC 34.8 % (32.0-36.0) 12/12/21 09:15 RDW 13.2 % (11.7-14.6) 12/12/21 09:15 Plt Count 141 10^3/uL (130-400) 12/12/21 09:15 MPV 10.7 fL (8.0-11.0) 12/12/21 09:15 Membranes Rupture Positive 12/12/21 08:52 COVID-19 Source Nasal/Nares 12/12/21 08:52 SARS-CoV-2 (PCR) Negative (Negative) 12/12/21 08:52 Patient ABO/Rh A Positive 12/12/21 09:15 Antibody Screen NEGATIVE 12/12/21 09:15 Subjective Interval history since last seen: much more comfortable status post epidural. She is pleased with the pain control. Agrees to moving forward with pitocin augmentation. Denies questions. KH Results Hemoglobin/Hematocrit: Hgb 11.8 g/dL (11.2-15.7) 12/12/21 09:15 Hct 33.9 % (36.0-46.0) L 12/12/21 09:15 Abnormal Lab Findings: Abnormal Labs 12/12/21 09:15 RBC 3.89 L Hct 33.9 L
[2021-12-13] MEDS: FentaNYL/ROPIvacaine 2 mcg/ml and 0.1% 200 ML CADD Cassette EP (02:00)
[2021-12-13] MEDS: diphenhydrAMINE 50 MG/ML VIAL 12.5 MG IVP (03:02)
--- NOTE | 2021-12-13 08:04 | OBVDS_ITS ---
Date of service: 12/13/21 Time of Service: 08:04 OB Labor/ Delivery Information Baby A Delivery Delivery Method: Spontaneaous Presentation: Vertex Vertex Position: Right Occipital Anterior Cord Description-Baby A: 2 Vessels and Clamped/Cut Amniotic Fluid: Clear Estimated Blood Loss: 500 Delivery Outcome: Liveborn Infant Complications: none Infant Transferred: Remains with Mother Providers Nurse Final Assembly Inspector: Anny Kapoor Nurse: Mitesh Childs Nurse: Gisela Cabrera Labor/Delivery Information Number of Babies in Womb: 1 Steroids Given: None Reason Steroids Not Administered: N/A Group Beta Strep: Positive Antibiotics Administered: Yes Number of Doses of Antibiotics: 6 Rubella Status: Immune Blood Type: A+ Varicella Immunity: Not Tested Maternal Complications: Prolonged Labor(>20hrs) Shoulder Dystocia: No Note: Jean Claude presented with contractions and SROM which occurred at 0620 on 12/12/21. She was 5 cm on arrival. Due to GBS + status IV access and PCN was started. She preferred to use expectant management and continued to labor throughout the day. Doppler FHR status was consistently reassuring. Jean Claude progressed slowly and pitocin and IUPC was recommended by provider during the day as she went 6 hours without progress but Jean Claude preferred continued expectant management and frequent position changes. She remained hydrated and active. FHR remained reassuring. In the late evening of 12/12 she had stopped progressing and due to her level of fatigue and need to have more effective contractions I reviewed opton of Pitocin again and she agreed to this intervention. Epidural was requested before starting pitocin. Epidural was very effective and Jean Claude was comfortable throughout her pitocin augmentation. At 0555 on 12/13/21 she had rectal pressure and was to be 10 cm +2. Second stage huddle was held. FHR tracing was CAT II with variable decels that recovered with resting between contractions. Patient pushed with excellent effort and baby girl Madan delivered AICHA over 2nd degree perineal laceration at 0727. Baby was brought to Mother's abdomen by Mother and Father, positive family bonding noted. Cord was double clamped and cut after several minutes. Baby had apgars of 9 and 9. Weight [id number]. 2nd degree perineal laceration is infiltrated with lidocaine and then repaired with 3.0 Chromic. Sponge, needle and instrument count are correct. Mother and baby are in satisfactory condition. Expect normal PP course. Plan discharge in 24-48 hours. KH Stages of Labor Onset of Labor Date: 12/12/21 Onset of Labor Time: 06:20 Complete Dilatation Date: 12/13/21 Complete Dilatation Time: 05:55 Labor - Stage 1 Duration: 24 hours and 0 minutes ROM Baby A: 12/12/21 ROM Baby A: 06:20 ROM Total Time- Baby A: [id number] Infant Delivery Date-Baby A: 12/13/21 Delivery Time-Baby A: 07:27 Labor Stage 2 Duration: 1 hours and 32 minutes Placenta Delivery Date-Baby A: 12/13/21 Placenta Delivery Time-Baby A: 07:33 Labor-Stage 3 Duration: 6 minutes Total Length of Labor-Baby A: 25 hours and 7 minutes Placenta Cultured: No Placenta Status: Delivered Baby A Gender: Female Gestational Status: Term (39-41.6 wks) Gestational Age in Weeks/Days: 41 Weeks and 1 Days Score-1 Minute Interval(Baby A) Heart Rate-1 minute: 100 BPM or Greater Respiratory Effort- 1 minute: Spontaneous/Strong Cry Muscle Tone-1 minute: Active Movement Reflex Response-1 minute: Prompt Response Color-1 minute: Bluish Hands or Feet Total Score-1 minute: 9 Score-5 Minute Interval(Baby A) Heart Rate- 5 minute: 100 BPM or Greater Respiratory Effort-5 minute: Spontaneous/Strong Cry Muscle Tone-5 minute: Active Movement Reflex Response-5 minute: Prompt Response Color-5 minute: Bluish Hands or Feet Total Score- 5 minute: 9
--- NOTE | 2021-12-13 14:02 | W.ANESPOSTOP ---
Postoperative Evaluation Date, Time and Location Date Performed: 12/13/21 Time Performed: 14:01 Patient Location: Obstetrics Vital Signs Most Recent Imported Vital Signs: Most Recent Vital Signs Temp Pulse Resp BP Pulse Ox 37.4 C 101 H 18 120/66 95 12/13/21 04:38 12/13/21 13:15 12/13/21 02:30 12/13/21 13:15 12/13/21 02:38 Pain Score Most Recent Pain Score: Most Recent Pain Score Pain Level 0 12/12/21 10:00 Assessment Mental Status: Awake (Alert & Oriented to Patient Baseline) Airway and Respiratory Function: Patent airway with normal (patient baseline) respiratory exam Cardiovascular Function: Hemodynamically Stable Hydration Status: Adequately Hydrated Nausea & Vomiting: No Nausea or Vomiting Pain: Pt. Denies Any Pain Peripheral Nerve Block: Patient did not receive a nerve block
--- NOTE | 2021-12-13 14:43 | NUR.NOTE ---
Nursing Note: This nurse assumed care of this patient at 1010.
[2021-12-13] MEDS: Acetaminophen 325 MG TAB 650 MG PO (22:03)
[2021-12-13] MEDS: Ibuprofen 600 MG TAB PO (22:13)
[2021-12-14 02:00] VITALS: BP 96/60; PULSE 75; RESP 18; TEMP 36.1
[2021-12-14 08:14] VITALS: BP 83/71; PULSE 76; RESP 19; TEMP 36.5; O2SAT 97
[2021-12-14] MEDS: Hamamelis Leaf/Glycerin 100 EACH BOX PR (09:18)
[2021-12-14] MEDS: Dibucaine 1% 28 GM TUBE TP (09:19)
[2021-12-14 12:40] VITALS: BP 98/64; PULSE 88; RESP 16; TEMP 36.6; O2SAT 98
[2021-12-14] MEDS: Ibuprofen 600 MG TAB PO (12:48)
[2021-12-14] MEDS: Acetaminophen 325 MG TAB 650 MG PO (12:49)
--- NOTE | 2021-12-14 15:53 | DSE_ITS ---
Date of service: 12/14/21 Time of Service: 15:54 DS: Diagnosis Discharge Diagnosis (1) Term of female : Status: Acute Asessment and Plan: Caring for baby independently. Pain is managed well with oral analgesics. Voiding without difficulty. well. Good family support A - stable mother and baby , Post day 1 P - Discharge to home today . Routine post instructions. [facility] Discharge Plan Disposition Patient Disposition: HOME Condition: Good Discharge Details Reason For Visit: Active labor at term Admit Date/Time: 12/12/21 08:59 Admit Provider: Anny Kapoor Attending Provider: Anny Kapoor Primary Care Provider: Estelita Kebede Home Meds and New Rx's Prescriptions: Continued Zyrtec 10 mg capsule 10 mg PO DAILY PRN (Reason: allergy symptoms) Qty: 1 0RF One-A-Day -1 27 mg iron- 800 mcg-235 mg capsule 1 cap PO DAILY Qty: 1 0RF mometasone 0.1 % cream 1 applic topical DAILY PRN Discontinued aspirin 81 mg tablet,chewable 81 mg PO DAILY ferrous sulfate 325 mg (65 mg iron) tablet 325 mg PO DAILY Label Comments: Pt unsure of dose- all natural beef liver supplements Discharge Instructions Stand Alone Forms: BC Instructions, BC Post Vaginal Deliver Activity:: Activity as Tolerated Equipment/Supplies:: No Equipment Needed Diet:: As Tolerated Discharge Orders Discharge Orders: Discharge Order (Routine); Ordered 12/14/21 Ordered By: Anny Rodriguez OB:DS Summary Summary Vaginal Delivery Method: Spontaneaous Episiotomy Description: None Laceration Description: Perineal Laceration Extension: Second Degree Contraception Discussed Contraception Discussed: Yes Contraceptive Plan: Foam/Condoms, Start Gender-Baby A: Female weight: 7 lb 12.164 oz Status at Discharge Functional status at discharge: independent ambulation Overall status at discharge: patient is back to baseline Mental Status: mental status grossly normal Speech and Movement: speech and movement normal Mood: congruent mood Affect: normal affect Exam Physical Exam Vital signs: Temp Pulse Resp BP Pulse Ox 97.9 F 88 16 98/64 L 98 12/14/21 12:40 12/14/21 12:40 12/14/21 12:40 12/14/21 12:40 12/14/21 12:40 Neck Exam Neck Exam: Normal Respiratory Exam Respiratory Exam: Normal Cardiovascular Exam Cardiovascular Exam: Normal Fundal Exam Fundus: Below Umbilicus Rectal Exam Rectal Exam: Normal Exam Perineum: Edematous (slightly) and Repair Intact Extremities Exam Extremity Exam: Normal Skin Exam Skin Exam: Normal Psychiatric Exam Psychiatric Exam: Normal PFSH All Active Problems (Updated 12/14/21 @ 15:54 by Anny Rodriguez CNM) Term of female (Acute) Abnormal labor (Acute) Group B Streptococcus carrier, +RV culture, currently (Acute) Normal labor (Acute) Elderly primigravida (Acute) Single artery and vein of umbilical cord (Acute) Has US at 32 weeks at [facility] NST's at 36 weeks weekly Lichen simplex chronicus (Acute) Marijuana use (Acute) Eczema (Acute) (Acute) Medical History Family History Maternal Grandfather Heart disease Cancer Maternal Uncle Cancer blood Cancer Mother Cancer melanoma Paternal Grandfather Diabetes Sister Asthma Social History Smoking/Tobacco Use Status: Never Smoking risk assessment performed?: Yes Alcohol Intake: never Drug use: Current Sobriety Substance use type: marijuana Do you feel safe at home: Yes Do you feel safe in your relationship?: Yes History History 5 Para 0 Hx # Term Pregnancies 0 Multiple births 0 Hx # Pregnancies 0 Ectopic pregnancies 0 AB induced 2 Hx Number of Living Children 0 AB spontaneous 2 DS: Data Vitals/I&O Vitals and I&O: Vital Signs Temperature 97.9 F 12/14/21 12:40 Pulse 88 12/14/21 12:40 Pulse Rhythm Regular 12/14/21 08:00 Respiratory Rate 16 12/14/21 12:40 Blood Pressure 98/64 L 12/14/21 12:40 Blood Pressure Mean 75 12/14/21 12:40 Pulse Oximetry 98 12/14/21 12:40 Oxygen Delivery Method Room Air 12/12/21 10:00 Oxygen Flow Rate 0 12/12/21 10:00 Pain Level 2 12/14/21 12:49 Comment 12/12/21 22:26 Intake & Output 12/13/21 12/14/21 12/14/21 23:59 11:59 23:59 Intake Total 100 / 1770.533 Balance 100 / 1770.533 Intake: IV 100 / 1220.533 Other: Urine Color Yellow
== END 2021-12-14 18:15 | disposition home or self-care (01) | DRG 807 ==
LOC: BCD 09:11 → OBS 09:45
PROVIDERS: Admitting Provider Advanced Practice Midwife; PCP Family Medicine; Visit Provider Advanced Practice Midwife
DX: O99.824 Streptococcus B carrier state complicating childbirth (principal); Z37.0 Single live birth; Z3A.41 41 weeks gestation of pregnancy; O99.02 Anemia complicating childbirth; D64.9 Anemia, unspecified; O70.1 Second degree perineal laceration during delivery; O63.0 Prolonged first stage (of labor); O69.89X0 Labor and delivery complicated by other cord complications, not applicable or unspecified
CPT/HCPCS: 36415; 84112; 85027; 86850; 86900; 86901; 87635; J1200; J2540; J3010